=== PATIENT | female | born 1980 | race African-American/Black ===

== ENCOUNTER 2019-08-18 13:59 | Emergency (ER) | payer MEDICAID ==
--- NOTE | 2019-08-18 15:23 | ER Document Report ---
ED Medical Screen (RME) - General Chief Complaint: Vaginal Bleeding Stated Complaint: VAGINAL BLEEDING Time Seen by Provider: 08/18/19 15:18 Notes: Patient is a 39-year-old female who presents to the emergency department with vaginal bleeding. Patient states that the vaginal bleeding has stopped, but she had a positive home urine test recently. Her last menstrual cycle that she knew of was in mid June. She denies any bleeding at this time. She does have a little bit of cramping. Exam: Soft mildly tender lower abdomen. I have greeted and performed a rapid initial assessment of this patient. A comprehensive ED assessment and evaluation of the patient, analysis of test results and completion of medical decision making process will be conducted by an additional ED providers. - Related Data Allergies/Adverse Reactions: banana Allergy (Verified 08/18/19 15:17) clindamycin Allergy (Verified 08/18/19 15:17) kiwi Allergy (Verified 08/18/19 15:17) tramadol Allergy (Verified 08/18/19 15:17) Physical Exam - Vital signs Vitals: Temp Pulse Resp BP Pulse Ox 98.4 F 86 18 150/104 H 98 08/18/19 15:17 08/18/19 15:17 08/18/19 15:17 08/18/19 15:17 08/18/19 15:17 Course - Vital Signs Vital signs: Temp Pulse Resp BP Pulse Ox 98.4 F 86 18 150/104 H 98 08/18/19 15:17 08/18/19 15:17 08/18/19 15:17 08/18/19 15:17 08/18/19 15:17
[2019-08-18 16:14] LABS: ABSOLUTE EOSINOPHILS # (AUTO) 0.1 10^3/uL (0.0-0.6); ABSOLUTE LYMPHOCYTES (AUTO) 1.7 10^3/uL (0.5-4.7); ABSOLUTE MONOCYTES (AUTO) 0.3 10^3/uL (0.1-1.4); ABSOLUTE NEUT (AUTO) 3.1 10^3/uL (1.7-8.2); BASOPHILS % (AUTO) 0.9 % (0-2); EOSINOPHILS % (AUTO) 1.6 % (0-6); HEMATOCRIT 36.9 % (36.0-47.0); HEMOGLOBIN 12.1 g/dL (12.0-15.5); LYMPHOCYTES % (AUTO) 32.3 % (13-45); MEAN CORPUSCULAR HEMOGLOBIN 27.7 pg (27.0-33.4); MEAN CORPUSCULAR HGB CONC 32.8 g/dL (32.0-36.0); MEAN CORPUSCULAR VOLUME 85 fl (80-97); MONOCYTES % (AUTO) 6.2 % (3-13); PLATELET COUNT 318 10^3/uL (150-450); RED BLOOD COUNT 4.37 10^6/uL (3.72-5.28); RED CELL DISTRIBUTION WIDTH 13.6 % (11.5-14.0); TOTAL CELLS COUNTED % (AUTO) 100 %; WHITE BLOOD COUNT 5.2 10^3/uL (4.0-10.5)
[2019-08-18 16:28] LABS: APPEARANCE,URINE CLEAR; BILIRUBIN,URINE NEGATIVE (NEGATIVE); COLOR,URINE YELLOW; GLUCOSE, URINE NEGATIVE (NEGATIVE); KETONES,URINE NEGATIVE (NEGATIVE); LEUKOCYTE ESTERASE,URINE NEGATIVE (NEGATIVE); NITRITE,URINE NEGATIVE (NEGATIVE); PROTEIN,URINE NEGATIVE (NEGATIVE); URINE SPECIFIC GRAVITY 1.013; UROBILINOGEN,URINE NEGATIVE mg/dL (<2.0)
[2019-08-18 16:33] LABS: ALBUMIN 4.4 g/dL (3.5-5.0); ALKALINE PHOSPHATASE 87 U/L (38-126); ANION GAP 12 (5-19); ASPARTATE AMINO TRANSFERASE 17 U/L (14-36); BILIRUBIN,DIRECT 0.3 mg/dL (0.0-0.4); BILIRUBIN,TOTAL 0.4 mg/dL (0.2-1.3); BLOOD UREA NITROGEN 11 mg/dL (7-20); CALCIUM 9.8 mg/dL (8.4-10.2); CARBON DIOXIDE 25 mmol/L (22-30); CHLORIDE 103 mmol/L (98-107); GLUCOSE 97 mg/dL (75-110); POTASSIUM 3.5 mmol/L (3.6-5.0); TOTAL PROTEIN 8.2 g/dL (6.3-8.2)
--- NOTE | 2019-08-18 18:56 | ER Document Report ---
ED GI/ - General Chief Complaint: Abdominal Cramping Stated Complaint: VAGINAL BLEEDING Time Seen by Provider: 08/18/19 15:18 Notes: Patient is a 39-year-old female with a history of hypertension who is a G4, P3 who presents to the emergency department with a chief complaint of lower abdominal cramping. Patient reports her last menstrual cycle was about 8 weeks ago. Patient reports she is sexually active and is not currently on co ntrol. Patient reports about 4 weeks ago she did have multiple positive home test. Patient reports she started to have vaginal spotting with dark blood and some clots on August 07. Patient reports this lasted for about 3 days. Patient reports she has had intermittent lower abdominal cramping. Patient denies urinary symptoms. Patient denies fever. Patient denies pain at this time. Patient denies vaginal discharge that is different from her normal at this time. - Related Data Allergies/Adverse Reactions: banana Allergy (Verified 08/18/19 15:17) clindamycin Allergy (Verified 08/18/19 15:17) kiwi Allergy (Verified 08/18/19 15:17) tramadol Allergy (Verified 08/18/19 15:17) Past Medical History - General Information source: Patient - Social History Smoking Status: Never Smoker Chew tobacco use (# tins/day): No Frequency of alcohol use: None Drug Abuse: None Lives with: Family Family History: None Patient has suicidal ideation: No Patient has homicidal ideation: No - Past Medical History Cardiac Medical History: Reports: Hx Hypertension Pulmonary Medical History: Reports: None EENT Medical History: Reports: None Neurological Medical History: Reports: None Endocrine Medical History: Reports: None Renal/ Medical History: Reports: None Malignancy Medical History: Reports: None GI Medical History: Reports: None Musculoskeletal Medical History: Reports None Skin Medical History: Reports None Psychiatric Medical History: Reports: None Traumatic Medical History: Reports: None Infectious Medical History: Reports: None Past Surgical History: Reports: Hx Section - x3, Hx Tonsillectomy Review of Systems - Review of Systems Constitutional: No symptoms reported EENT: No symptoms reported Cardiovascular: No symptoms reported Respiratory: No symptoms reported Gastrointestinal: No symptoms reported Genitourinary: No symptoms reported Female Genitourinary: See HPI Musculoskeletal: No symptoms reported Skin: No symptoms reported Hematologic/Lymphatic: No symptoms reported Neurological/Psychological: No symptoms reported Physical Exam - Vital signs Vitals: Temp Pulse Resp BP Pulse Ox 98.4 F 86 18 150/104 H 98 08/18/19 15:17 08/18/19 15:17 08/18/19 15:17 08/18/19 15:17 08/18/19 15:17 Interpretation: Hypertensive - Notes Notes: GENERAL: Well-appearing, well-nourished and in no acute distress. HEAD: Atraumatic, normocephalic. EYES: Pupils equal round and reactive to light, extraocular movements intact, sclera anicteric, conjunctiva are normal. ENT: Nares patent, oropharynx clear without exudates. Moist mucous membranes. NECK: Normal range of motion, supple without lymphadenopathy or JVD. LUNGS: Breath sounds clear to auscultation bilaterally and equal. No wheezes rales or rhonchi. HEART: Regular rate and rhythm without murmurs, rubs or gallops. ABDOMEN: Soft, round, obese, nontender, normoactive bowel sounds. No guarding, no rebound. No masses appreciated. BACK: No cervical, thoracic, lumbar midline tenderness. No saddle anesthesia, normal distal neurovascular exam. GENITOURINARY: Deferred. EXTREMITIES: Normal range of motion, no pitting or edema. No clubbing or c yanosis. NEUROLOGICAL: Cranial nerves II through XII grossly intact. Normal speech, normal gait. PSYCH: Normal mood, normal affect. SKIN: Warm, Dry, normal turgor, no rashes or lesions noted. Course - Re-evaluation Re-evalutation: 08/18/19 18:52 Upon initial evaluation patient is resting comfortably on stretcher no acute distress. Patient currently denies lower abdominal cramping or pain. Patient denies vaginal discharge that is different from her normal. Ultrasound was ordered initially in triage but the patient continues to politely declined this. Patient also does not want a pelvic examination and I do not think this is extremely necessary due to the complaint of no vaginal bleeding and no vaginal discharge and resolved cramping. I did inform her that without an ultrasound I could not rule out abnormality of the ovaries and uterus, patient verbalized understanding. Patient reports she does follow-up with a free clinic in [place] and plans to follow-up in the next few weeks. I did inform the patient that she could have potentially gotten but miscarried when she had the vaginal bleeding and discharge around [place]. Patient is not currently . 08/18/19 18:56 Patient's abdominal examinations unremarkable without point tenderness or rebound tenderness. 08/18/19 19:27 At time of discharge patient is not tachycardic, febrile or hypotensive. Patient stable for discharge. - Vital Signs Vital signs: Temp Pulse Resp BP Pulse Ox 98.4 F 94 15 147/93 H 98 08/18/19 19:09 08/18/19 19:09 08/18/19 19:09 08/18/19 19:09 08/18/19 19:09 - Laboratory Result Diagrams: 08/18/19 15:47 08/18/19 15:47 Laboratory results interpreted by me: 08/18/19 15:47 Potassium 3.5 L 08/18/19 18:52 Patient's blood work does not show a leukocytosis or anemia. Patient's potassium 3.5. Patient's electrolytes are within normal limits. Patient does not have any alteration in her kidney function or liver function. Patient's beta-hCG quant is less than 2.39 and total beta hCG is negative. Patient's urinalysis is unremarkable. Laboratory 08/18/19 08/18/19 08/18/19 15:47 15:47 15:47 WBC 5.2 RBC 4.37 Hgb 12.1 Hct 36.9 MCV 85 MCH 27.7 MCHC 32.8 RDW 13.6 Plt Count 318 Lymph % (Auto) 32.3 Grady % (Auto) 6.2 Eos % (Auto) 1.6 Baso % (Auto) 0.9 Absolute Neuts (auto) 3.1 Absolute Lymphs (auto) 1.7 Absolute Monos (auto) 0.3 Absolute Eos (auto) 0.1 Absolute Basos (auto) 0.0 Seg Neutrophils % 59.0 Sodium 139.9 Potassium 3.5 L Chloride 103 Carbon Dioxide 25 Anion Gap 12 BUN 11 Creatinine 0.73 Est GFR ( Amer) > 60 Est GFR (MDRD) Non-Af > 60 Glucose 97 Calcium 9.8 Total Bilirubin 0.4 Direct Bilirubin 0.3 Neonat Total Bilirubin Not Reportable Neonat Direct Bilirubin Not Reportable Neonat Indirect Bili Not Reportable AST 17 ALT 10 Alkaline Phosphatase 87 Total Protein 8.2 Albumin 4.4 Lipase 105.7 Beta HCG, Quant < 2.39 Total Beta HCG NEGATIVE Urine Color Urine Appearance Urine pH Ur Specific Neeses Urine Protein Urine Glucose (UA) Urine Ketones Urine Blood Urine Nitrite Urine Bilirubin Urine Urobilinogen Ur Leukocyte Esterase Urine WBC (Auto) Urine RBC (Auto) Squamous Epi Cells Auto Urine Mucus (Auto) Urine Ascorbic Acid Blood Type O POSITIVE Rhogam Indicated RHOGAM NOT INDICATED 08/18/19 15:47 WBC RBC Hgb Hct MCV MCH MCHC RDW Plt Count Lymph % (Auto) Grady % (Auto) Eos % (Auto) Baso % (Auto) Absolute Neuts (auto) Absolute Lymphs (auto) Absolute Monos (auto) Absolute Eos (auto) Absolute Basos (auto) Seg Neutrophils % Sodium Potassium Chloride Carbon Dioxide Anion Gap BUN Creatinine Est GFR ( Amer) Est GFR (MDRD) Non-Af Glucose Calcium Total Bilirubin Direct Bilirubin Neonat Total Bilirubin Neonat Direct Bilirubin Neonat Indirect Bili AST ALT Alkaline Phosphatase Total Protein Albumin Lipase Beta HCG, Quant Total Beta HCG Urine Color YELLOW Urine Appearance CLEAR Urine pH 5.0 Ur Specific Neeses 1.013 Urine Protein NEGATIVE Urine Glucose (UA) NEGATIVE Urine Ketones NEGATIVE Urine Blood NEGATIVE Urine Nitrite NEGATIVE Urine Bilirubin NEGATIVE Urine Urobilinogen NEGATIVE Ur Leukocyte Esterase NEGATIVE Urine WBC (Auto) 1 Urine RBC (Auto) 0 Squamous Epi Cells Auto 1 Urine Mucus (Auto) RARE Urine Ascorbic Acid NEGATIVE Blood Type Rhogam Indicated Discharge - Discharge Clinical Impression: Pelvic cramping Condition: Stable Disposition: HOME, SELF-CARE Additional Instructions: *Today was seen in the emergency department for pelvic cramping. We did obtain blood work which did not show a current . Due to the multiple home test about 4 weeks ago and the episode of bleeding you had around [place] you could have potentially miscarried. Unfortunately we do not know this for effect. Please follow-up with the clinic in [place] to have repeat blood work drawn if you not have a normal menstrual cycle. *I did offer you a ultrasound which at this point you have politely declined. Pelvic Pain There are many causes of pain in the pelvic area. The cause could be the tubes, ovaries, uterus, intestines, appendix, pelvic muscles and connective tissue, or the urinary tract. The cause of your pelvic pain is not clear. However, it seems safe to treat you outside the hospital. If the pain sounds like a temporary problem, we sometimes wait to see if it goes away. Other patients may need additional tests, such as pelvic ultrasound or cultures. Conditions may change. Call us or come back for reexamination if any problems occur, such as: (1) Pain that becomes more severe, steady, or becomes concentrated in one specific area. Also, pain that is more severe with movement or coughing. (2) Vomiting that persists or becomes more frequent. (3) Blood in the vomitus, urine, or bowel movements. Blood in the stool may have a tarry or black appearance. (4) Shaking chills or fever greater than 100 degrees. (5) The abdomen becomes more distended or swollen. (6) Bowel movements cease. (7) Heavy vaginal bleeding.
[2019-08-18 19:11] VITALS: BP 147/93
== END 2019-08-18 19:09 | disposition home or self-care (01) ==
LOC: ER 13:59
DX: O26.891 Other specified pregnancy related conditions, first trimester (principal); R10.2 Pelvic and perineal pain; R10.30 Lower abdominal pain, unspecified; O16.9 Unspecified maternal hypertension, unspecified trimester; Z3A.01 Less than 8 weeks gestation of pregnancy
CPT/HCPCS: 36415; 80053; 81001; 83690; 84702; 85025; 86900; 86901; 99284